=== PATIENT | male | born 1960 | race Caucasian/White ===

== ENCOUNTER 2018-02-13 12:28 | Inpatient (IN) ==
[2018-02-13] MEDS ORDERED: Aluminum/Magnesium/Simethacone Susp 30 ML UDC PO PRN (19:39)
[2018-02-13] MEDS ORDERED: Bisacodyl 10 MG Supp RECTAL PRN (19:39)
[2018-02-13] MEDS: Senna/Docusate Sodium 8.6/50 MG Tablet PO SCH (21:57)
[2018-02-14 06:57] VITALS: BP 123/72; PULSE 69; RESP 18; TEMP 97.6; O2SAT 98
[2018-02-14] MEDS: Senna/Docusate Sodium 8.6/50 MG Tablet PO SCH (09:47)
[2018-02-14 10:51] LABS: Calcium 8.8 mg/dL (8.5-10.1); Carbon Dioxide 24.5 meq/L (21.0-32.0); Potassium 4.8 meq/L (3.5-5.1)
[2018-02-14 10:53] LABS: Chol/HDL Ratio 4.59 Ratio; HDL Cholesterol 49.8 mg/dL (40.0-60.0)
[2018-02-14 13:23] LABS: Hemoglobin A1c 5.7 % (4.3-6.0)
--- NOTE | 2018-02-14 15:24 | P.HPPSY ---
Provisional Diagnosis Admission Date: February 13, 2018 17:23 [place].: Adjustment disorder with mixed disturbance of emotion and conduct, marijuana abuse Competence Certification of Person's Competence To Provide Express and Informed Consent I have personally examined Rober Garcia, a person being served at [facility] on, February 14, 2018 1516. Express and informed consent means consent voluntarily given in writing, by a competent person, after sufficient explanation and disclosure of the subject matter involved to enable the person to make a knowing and willful decision without any element of force, fraud, deceit, duress, or other form of constraint or coercion. This person is 18 years of age or older, is not now known to be incompetent to consent to treatment with a guardian advocate, and does not have a health care surrogate or proxy currently making medical treatment decisions. I have found this person to be one of the following: [xxx] Competent to provide express and informed consent, as defined above, for voluntary admission to this facility and is competent to provide express and informed consent for treatment. He/she has the consistent capacity to make well reasoned, willful, and knowing decisions concerning his or her medical or mental health treatment. The person fully and consistently understands the purpose of the admission for examination/placement and is fully capable of personally exercising all rights assured under [place] Incompetent to provide express and informed consent to voluntary admission, and this is incompetent to provide express and informed consent to treatment. The person must be transferred to involuntary status and a petition for a guardian advocate filed with the Circuit Court. [] Refusing to provide express and informed consent to voluntary admission but is competent to provide express and informed consent for treatment. The person must be discharged or transferred to involuntary status. Form shall be completed within 24 hours of a person's arrival at the receiving facility and filed in the clinical record of each person: 1. Admitted on a voluntary basis 2. Permitted to provide express and informed consent to his/her own treatment 3. Allowed to transfer from involuntary to voluntary status 4. Prior to permitting a person to consent to his or her own treatment after having been previously found incompetent to consent to treatment. History of Present Illness Capacity: Has capacity History of Present Illness: Patient is a 57-year-old white male who comes here initially under Woods act from [facility] transported under the Woods act Woods act signed by a Salvador Bower dated 02/13/2018 at 6:25 PM stating patient is depressed secondary to marital problems reports thoughts of self-harm and wanted to take pills to end his life. Patient seen screen at that facility urine toxicology positive for marijuana. Patient seen in his room on 2700 nurse Azul and counselor Sweetie present. Patient states she lives in [facility] it came up here to attempt a reconciliation with his ex- who lives in [place]. It appears that a contentious divorce number of years ago. He does have a child with her. This did not go well he was only in the house for a few weeks and she kicked him out about a week ago he has been homeless since then leading to increased anxiety and frustration. He did acknowledge smoking some marijuana. Denies any prior psychiatric contact hospitalizations or psychotropic medications. He says he just smoked a little weed once to calm him down. He is now also depleted of his funds. He denies any other significant's substance use. Denies any prior physical and/or sexual abuse. Denies any family history of mental illness or addictions. Patient did state that he he has called a friend of his since being here at [place] who lives in the [place] area that is willing to have him come and stay with her and her . He now denies suicidality homicidality voice or visions. Does wish to be discharged to go to that area but will need some assistance. At this time patient longer meets Woods criteria will lift Woods act. We will have her counselor help arrange transportation for him down to that area the B no Rx by me - Inpatient Certification I certify that the inpatient services were ordered in accordance with Medicare regulations governing the order. This includes certification that hospital inpatient services are reasonable and necessary and in the case of services not specified as inpatient-only under 42 CFR 419.22(n), that they are appropriately provided as inpatient services in accordance to with the 2-midnight benchmark under 43 CFR 412.3(e) I certify that inpatient psychiatric hospital services are medically necessary. Evaluation and treatment and/or diagnostic testing are expected to improve the patient's condition. The patient needs on a daily basis, active treatment furnished directly by or requiring the supervision of inpatient psychiatric facility personnel. Estimated Total Length of Stay (Days): 1 Plans for Post Hospital Care: Not yet determined Review of Systems All other systems reviewed negative except as stated in HPI PMFSH - History History Provided By: Patient - Tobacco History Second Hand Smoke Exposure: Yes Tobacco Use In Past 30 Days: Yes Smoking Status: Current every day smoker Tobacco Type: Cigarettes - Alcohol History How Often Do You Have a Drink Containing Alcohol: Never - Substance Use History Substance History: Active Abuse - Substance Use Type Marijuana Status: Active Route Used: Inhalation Frequency: EVERYDAY Reason for Use: Calm Down Quality Measures - Psychiatric History Psychological trauma history: Patient denies Violence risk to others in the last 6 months: Low Violence risk to self in the last 6 months: Low as of now - Substance Abuse History Drug or alcohol use in the past 12 months: Patient states brief use of marijuana - Patient Strengths Patient's strengths (minimum of 2): Patient verbal able access healthcare Medications and Allergies Active Medications: Active Medications Al Hydrox/Mg Hydrox/Simethicone (Mag-Al Plus Susp Liq) 30 ml PO Q6H PRN PRN Reason: DYSPEPSIA Al Hydroxide/Mg Hydroxide (Milk Of Magnesia Liq) 30 ml PO Q12H PRN PRN Reason: Mild Constipation Bisacodyl (Dulcolax Supp) 10 mg RECTAL DAILY PRN PRN Reason: SEVERE CONSITIPATION Lactulose (Lactulose Liq) 30 ml PO DAILY PRN PRN Reason: SEVERE CONSITIPATION Senna/Docusate Sodium (Jazzmine-Colace) 1 tab PO BID LILA Last Admin: 02/14/18 09:47 Dose: Not Given Sennosides (Senokot) 17.2 mg PO Q12H PRN PRN Reason: Moderate Constipation Allergies Allergy/AdvReac Type Severity Reaction Status Date / Time No Known Allergies Allergy Verified 02/13/18 18:19 Results - Labs CBC & Chem 7: 02/14/18 10:00 Labs: Laboratory Results - last 24 hr 02/14/18 02/14/18 10:00 10:00 Sodium 138 Potassium 4.8 Chloride 104 Carbon Dioxide 24.5 Anion Gap 10 BUN 21 H Creatinine 1.05 Estimated GFR 73 L Random Glucose 83 Hemoglobin A1c 5.7 Calcium 8.8 Triglycerides 163 H Cholesterol 229 H LDL Cholesterol, Calc 147 H HDL Cholesterol 49.8 Cholesterol/HDL Ratio 4.59 Exam Vital signs: Vital Signs 02/14/18 06:00 Temperature 97.6 F Pulse Rate 69 Respiratory Rate 18 Blood Pressure 123/72 Pulse Oximetry 98 Intake & Output 02/13/18 02/14/18 02/14/18 18:59 06:59 18:59 Weight 71 kg Other: Weight On Admission 71 kg Narrative: Patient sitting is somewhat anxious stating that his room who is in no acute distress, is in no respiratory distress, no complaints of chest pain or abdominal pain. Patient moving all 4 extremities without difficulty Mental Status Examination Appearance: Appropriate Consciousness: Alert Orientation: x4 Motor Activity: Normal gait Speech: Unremarkable Language: Adequate Fund of Knowledge: Adequate Attention and Concentration: Adequate Memory: Unremarkable Mood: Other (Euthymic to mildly anxious) Affect: Other (Slight increased range and intensity) Thought Process & Associations: Intact Thought Content: Appropriate Delusion Type: None Suicidal Ideation: No Suicidal Plan: No Suicidal Intention: No Homicidal Ideation: No Homicidal Plan: No Homicidal Intention: No Insight: Fair Judgment: Impulsive Assessment and Plan - Assessment (1) Adjustment disorder with mixed disturbance of emotions and conduct Code(s): F43.25 - Adjustment disorder with mixed disturbance of emotions and conduct Status: Acute (2) Marijuana abuse Code(s): F12.10 - Cannabis abuse, uncomplicated Status: Acute - Plan Plan: Estimated LOS: 1 [] days At this time patient was found friends who will take him in he now denies suicidality homicidality voice or visions. We will help arrange transportation to that location. The B no Rx by me patient able contract to do no harm Justification for Continued Inpatient Stay: Patient to be discharged today Discharge Planning: Patient to be discharged today
--- NOTE | 2018-02-14 15:28 | P.DSPSY ---
Psychiatry Discharge Summary Inpatient Psychiatric care?: Yes Advance Directives: No Mental Health Advance Directive: No Health Care Proxy: No - Admission Admission Date: February 13, 2018 17:23 - Admission Diagnosis (1) Adjustment disorder with mixed disturbance of emotions and conduct Code(s): F43.25 - Adjustment disorder with mixed disturbance of emotions and conduct (2) Marijuana abuse Code(s): F12.10 - Cannabis abuse, uncomplicated Brief History: Patient is a 57-year-old white male who comes here initially under Woods act from [facility] transported under the Woods act Woods act signed by a Salvador Bower dated 02/13/2018 at 6:25 PM stating patient is depressed secondary to marital problems reports thoughts of self-harm and wanted to take pills to end his life. Patient seen screen at that facility urine toxicology positive for marijuana. Patient seen in his room on 2700 nurse Azul and counselor Sweetie present. Patient states she lives in [facility] it came up here to attempt a reconciliation with his ex- who lives in [place]. It appears that a contentious divorce number of years ago. He does have a child with her. This did not go well he was only in the house for a few weeks and she kicked him out about a week ago he has been homeless since then leading to increased anxiety and frustration. He did acknowledge smoking some marijuana. Denies any prior psychiatric contact hospitalizations or psychotropic medications. He says he just smoked a little weed once to calm him down. He is now also depleted of his funds. He denies any other significant's substance use. Denies any prior physical and/or sexual abuse. Denies any family history of mental illness or addictions. Patient did state that he he has called a friend of his since being here at [facility] who lives in the [place] area that is willing to have him come and stay with her and her . He now denies suicidality homicidality voice or visions. Does wish to be discharged to go to that area but will need some assistance. At this time patient longer meets Woods criteria will lift Woods act. We will have her counselor help arrange transportation for him down to that area the B no Rx by me Tobacco Use In Past 30 Days: Yes How Often Do You Have a Drink Containing Alcohol: Never Hospital Course: Please see note dictated under brief history. Patient denies suicidality homicidality voice or visions. Does have a place to stay. [facility] transport there - Discharge Discharge Date: 02/14/18 - Discharge Diagnosis (1) Adjustment disorder with mixed disturbance of emotions and conduct Diagnosis: Principal Code(s): F43.25 - Adjustment disorder with mixed disturbance of emotions and conduct Status: Acute (2) Marijuana abuse Diagnosis: Secondary Code(s): F12.10 - Cannabis abuse, uncomplicated Status: Acute Discharge Disposition: Patient to stay with friends in [place] - Discharge Instructions Discharge Diet: Regular Diet (Patient to go to her friends in [place]) Activities You Can Perform: Regular- No Restrictions - Discharge Time > 30 minutes Mental Status Examination Appearance: Appropriate Consciousness: Alert Orientation: x4 Motor Activity: Normal gait Speech: Unremarkable Language: Adequate Fund of Knowledge: Adequate Attention and Concentration: Adequate Memory: Unremarkable Mood: Other (Euthymic to mildly anxious) Affect: Other (Slight increased range and intensity) Thought Process & Associations: Intact Thought Content: Appropriate Delusion Type: None Suicidal Ideation: No Suicidal Plan: No Suicidal Intention: No Homicidal Ideation: No Homicidal Plan: No Homicidal Intention: No Insight: Fair Judgment: Impulsive Discharge/Advance Care Plan - Results Vital Signs: Last Vital Signs Temp 97.6 F 02/14/18 06:00 Pulse 69 02/14/18 06:00 Resp 18 02/14/18 06:00 BP 123/72 02/14/18 06:00 Pulse Ox 98 02/14/18 06:00 Lab Results: Abnormal Lab Results 02/14/18 02/14/18 10:00 10:00 Sodium 138 Potassium 4.8 Chloride 104 Carbon Dioxide 24.5 Anion Gap 10 BUN 21 H Creatinine 1.05 Estimated GFR 73 L Random Glucose 83 Hemoglobin A1c 5.7 Calcium 8.8 Triglycerides 163 H Cholesterol 229 H LDL Cholesterol, Calc 147 H HDL Cholesterol 49.8 Cholesterol/HDL Ratio 4.59 Laboratory Results Hemoglobin A1c 5.7 % (4.3-6.0) 02/14/18 10:00 Triglycerides 163 mg/dL (42-150) H 02/14/18 10:00 Cholesterol 229 mg/dL (120-200) H 02/14/18 10:00 LDL Cholesterol, Calc 147 mg/dL (0-99) H 02/14/18 10:00 HDL Cholesterol 49.8 mg/dL (40.0-60.0) 02/14/18 10:00 Summary of Procedures: None done Pending Results: None - Medications Number of antipsychotic medications at discharge: 0 - Discharge Care Plan Goals to Promote Your Health: * To prevent worsening of your condition and complications * To maintain your health at the optimal level Directions to Meet Your Goals: Take your medications as prescribed Follow your dietary instruction Follow activity as directed Keep your appointments as scheduled Take your immunizations and boosters as scheduled If your symptoms worsen call your PCP, if no PCP go to Urgent Care Center or Emergency Room For 06/01 questions related to your inpatient stay or results of tests pending at discharge, please contact Dr. Celestine Cunningham MD at Smoking is Dangerous to Your Health. Avoid second hand smoking
== END 2018-02-14 17:31 | disposition home or self-care (01) ==
LOC: H270 17:23
PROVIDERS: ADMIT Psychiatry & Neurology Psychiatry; ATTEND Psychiatry & Neurology Psychiatry